=== PATIENT | male | born 1990 | race Caucasian/White ===

== ENCOUNTER 2017-09-10 09:30 | Emergency (ER) | payer OTHER, MEDICAID ==
--- NOTE | 2017-09-10 09:43 | EDM.PDOC ---
ED HPI GENERAL MEDICAL PROBLEM - General Chief Complaint: Lower Extremity Injury/Pain Stated Complaint: HURT AT WORK VIA AMBULANCE Time Seen by Provider: 09/10/17 09:35 Source of Information: Reports: Patient, EMS History Limitations: Reports: No Limitations - History of Present Illness INITIAL COMMENTS - FREE TEXT/NARRATIVE: 26 yo male employed at a [employer] got his R leg crushed in some heavy duty equipment today. Here via EMS immobilized after fentanyl 50 mcg intranasally and 50 mcg IV. Onset: Today Onset Date: 09/10/17 Onset Time: 08:45 Duration: Minutes: Location: Reports: Lower Extremity, Right Quality: Reports: Ache Severity: Moderate Improves with: Reports: Medication Worsens with: Reports: Movement Context: Reports: Trauma Associated Symptoms: Reports: No Other Symptoms Treatments [employer]: Reports: Other (see below) (fentanyl per EMS) - Related Data Allergies Allergy/AdvReac Type Severity Reaction Status Date / Time No Known Allergies Allergy Verified 09/10/17 09:37 Home Meds: Home Meds Hydrocodone/Acetaminophen [Clarissa 5-325] 1 - 2 tab PO Q4H PRN #20 tablet [Rx] Past Medical History - Past Health History Medical/Surgical History: Denies Medical/Surgical History Social & Family History - Tobacco Use Second Hand Smoke Exposure: No - Alcohol Use Days Per Week of Alcohol Use: 1 Number of Drinks Per Day: 3 Total Drinks Per Week: 3 - Recreational Drug Use Recreational Drug Use: No Review of Systems - Review of Systems Review Of Systems: See Below Constitutional: Reports: No Symptoms Respiratory: Reports: No Symptoms Cardiovascular: Reports: No Symptoms GI/Abdominal: Reports: No Symptoms Musculoskeletal: Reports: Leg Pain (right) Skin: Reports: No Symptoms Neurological: Reports: No Symptoms ED EXAM, GENERAL - Physical Exam Exam: See Below Exam Limited By: No Limitations General Appearance: Alert, WD/WN, No Apparent Distress Eye Exam: Bilateral Eye: Normal Inspection Ears: Normal External Exam, Normal Canal, Hearing Grossly Normal Ear Exam: Bilateral Ear: Auricle Normal, Canal Normal Nose: Normal Inspection, Normal Mucosa, No Blood Throat/Mouth: Normal Voice, No Airway Compromise Head: Atraumatic, Normocephalic Neck: Normal Inspection Respiratory/Chest: No Respiratory Distress, No Accessory Muscle Use Cardiovascular: Regular Rate, Rhythm Extremities: Normal Inspection. No: Pedal Edema Neurological: Alert, Oriented, CN II-XII Intact, Normal Cognition, No Motor/ Sensory Deficits Psychiatric: Normal Affect, Normal Mood Skin Exam: Warm, Dry, Intact, Normal Color, No Rash Course - Vital Signs Last Recorded V/S: Last Vital Signs Temp 36.5 C 09/10/17 09:40 Pulse 72 09/10/17 09:40 Resp 18 09/10/17 09:40 BP 130/87 09/10/17 09:40 Pulse Ox 96 09/10/17 09:40 - Orders/Labs/Meds Orders: Active Orders 24 hr Category Date Time Status Femur Min 2V Rt [CR] Stat Exams 09/10/17 09:37 Ordered Tibia Fibula Rt [CR] Stat Exams 09/10/17 09:38 Ordered Meds: Medications Discontinued Medications Generic Name Dose Route Start Last Admin Trade Name Vivekq PRN Reason Stop Dose Admin Ketorolac Tromethamine 30 mg 09/10/17 09:44 09/10/17 09:46 Toradol IVPUSH 09/10/17 09:45 30 mg ONETIME ONE Administration - Radiology Interpretation Free Text/Narrative:: R femur X-ray-neg R tib/fib X-ray-neg Crutches and an immobilizer given. Departure - Departure Time of Disposition: 10:30 Disposition: Home, Self-Care 01 Condition: Fair Clinical Impression: Crushing injury of leg, right Qualifiers: Encounter type: initial encounter Qualified Code(s): S87.81XA - Crushing injury of right lower leg, initial encounter - Discharge Information Referrals: PCP,None [Primary Care Provider] - Forms: ED Department Discharge - My Orders Last 24 Hours: My Active Orders 09/10/17 09:37 Femur Min 2V Rt [CR] Stat 09/10/17 09:38 Tibia Fibula Rt [CR] Stat - Assessment/Plan Last 24 Hours: My Active Orders 09/10/17 09:37 Femur Min 2V Rt [CR] Stat 09/10/17 09:38 Tibia Fibula Rt [CR] Stat
[2017-09-10] MEDS ORDERED: Ketorolac 30 MG/ML SDV IVPUSH ONE (09:44)
--- NOTE | 2017-09-10 11:54 | CR ---
Femur Min 2V Rt INDICATION: injury COMPARISON: None FINDINGS: 5 views right femur show no fracture or other acute bony abnormality.
--- NOTE | 2017-09-10 12:12 | CR ---
Tibia Fibula Rt INDICATION: injury COMPARISON: None FINDINGS: 4 views. No fracture, dislocation, or other acute bony abnormality. No joint space narr owing.
== END 2017-09-10 10:58 | disposition home or self-care (01) ==
LOC: JP.ED 09:30
DX: S87.81XA Crushing injury of right lower leg, initial encounter (principal); W23.0XXA Caught, crushed, jammed, or pinched between moving objects, initial encounter; Y99.0 Civilian activity done for income or pay
CPT/HCPCS: 73552; 73590; 96374; 99284; J1885

== ENCOUNTER 2025-07-01 11:08 | Day surgery (SDC) | payer MEDICAID ==
[2025-07-01] MEDS ORDERED: Midazolam 1 MG/ML 2 ML SDV ONE (11:42)
[2025-07-01] MEDS ORDERED: fentaNYL 50 MCG/ML SDV ONE ×2 (11:42→12:56)
[2025-07-01] MEDS ORDERED: Propofol 200 MG/20 ML SDV ONE (11:42)
[2025-07-01] MEDS: Lactated Ringers 1,000 ML IV SCH (12:17)
== END 2025-07-01 14:30 | disposition home or self-care (01) ==
LOC: JP.SDS 11:08
PROVIDERS: ATTEND Surgery
DX: K64.8 Other hemorrhoids (principal); K92.2 Gastrointestinal hemorrhage, unspecified; Z79.899 Other long term (current) drug therapy
CPT/HCPCS: 45398; J2250; J2704; J3010; J7120